=== PATIENT | male | born 1960 | race Caucasian/White ===

== ENCOUNTER → 2020-02-28 | Outpatient (CLI) | payer OTHER ==
--- NOTE | 2020-02-28 11:07 | 2DMMODE ---
[facility] [place] [address] 2 D/M-MODE ECHOCARDIOGRAM Name: DARIUSLUCIA Room #: REG [facility]#: [id number] Admission: 02/28/20 Attend Phys: Vickie Smalls MD Discharge: Date of : 56 Report #: [id number] THIS REPORT FOR: cc: Vickie Smalls MD, Sara A. MD Lammoglia, Francisco J. MD ~ APPROVED REPORT Study performed: 02/28/2020 10:16:08 EXAM: Comprehensive 2D, Doppler, and color-flow Echocardiogram Patient Location: Out-Patient Status: routine BSA: 2.05 HR: 65 bpm BP: 126/76 mmHg Rhythm: NSR Other Information Study Quality: Good Indications Status post COVID-19. 2D Dimensions RVDd: 35.11 mm IVSd: 9.99 (7-11mm) LVOT Diam: 21.41 (18-24mm) LVDd: 49.97 mm PWd: 10.76 (7-11mm) Ascending Ao: 35.33 (22-36mm) LVDs: 29.38 (25-40mm) Aortic Root: 36.13 mm Volumes Left Atrial Volume (Systole) Single Plane 4CH: 44.34 mL Single Plane 2CH: 54.01 mL LA ESV Index: 26.00 mL/m2 Aortic Valve AoV Peak Tirso.: 1.18 m/s AO Peak Gr.: 5.53 mmHg LVOT Max P.11 mmHg LVOT Max V: 1.01 m/s FRAN Vmax: 3.10 cm2 [facility] [address] [place] [address] 2 D/M-MODE ECHOCARDIOGRAM Name: LUCIA MCCOY Room #: REG [facility]#: [id number] Admission: 02/28/20 Attend Phys: Vickie Smalls MD Discharge: Date of : 56 Report #: [id number] Mitral Valve E/A Ratio: 0.9 MV Decel. Time: 217.82 ms MV E Max Tirso.: 0.76 m/s MV A Tirso.: 0.84 m/s MV PHT: 63.17 ms IVRT: 93.43 ms Pulmonary Valve PV Peak Tirso.: 1.02 m/s PV Peak Gr.: 4.13 mmHg Pulmonary Vein P Vein S: 0.49 m/s P Vein A: 0.29 m/s P Vein D: 0.39 m/s P Vein A Dur.: 96.9 msec P Vein S/D Ratio: 1.26 Tricuspid Valve TR Peak Tirso.: 2.00 m/s RAP Estimate: 5.00 mmHg TR Peak Gr.: 16.00 mmHg PA Pressure: 21.00 mmHg Left Ventricle The left ventricle is normal size. There is normal LV segmental wall motion. There is normal left ventricular wall thickness. Left ventricular systolic function is normal. LVEF is 55-60%. Mild diastolic dysfunction is present (impaired relaxation pattern). Right Ventricle The right ventricle is normal size. The right ventricular systolic function is normal. Atria The left atrium size is normal. The right atrium size is normal. Aortic Valve The aortic valve is normal in structure. No aortic regurgitation is present. There is no aortic valvular stenosis. Mitral Valve Mild to moderate prolapse of the posterior mitral valve leaflet. Mild to moderate mitral regurgitation. No evidence of mitral valve stenosis. Tricuspid Valve [facility] [place] [address] 2 D/M-MODE ECHOCARDIOGRAM Name: MEGANSIDNEYLUCIA Room #: REG [facility]#: [id number] Admission: 02/28/20 Attend Phys: Vickie Smalls MD Discharge: Date of : 56 Report #: [id number] The tricuspid valve is normal in structure. Trace tricuspid regurgitation. Estimated PAP is 20-25mmHg. Pulmonic Valve The pulmonary valve is normal in structure. Trace pulmonic regurgitation. Great Vessels The aortic root is normal in size. The ascending aorta is normal in size. IVC is normal in size and collapses >50% with inspiration. Pericardium There is no pericardial effusion. <Conclusion> The left ventricle is normal size. LVEF is 55-60%. The left atrium size is normal. The aortic valve is normal in structure. Mild to moderate prolapse of the posterior mitral valve leaflet. Mild to moderate mitral regurgitation. The tricuspid valve is normal in structure. Trace tricuspid regurgitation. Estimated PAP is 20-25mmHg. There is no pericardial effusion. <ELECTRONICALLY SIGNED> By: Mark Rosales MD 02/28/20 [id number] Mark Rosales MD /INF
== END ==
LOC: CV 10:13
PROVIDERS: ATTEND Family Medicine
DX: U07.1 COVID-19 (principal); I34.0 Nonrheumatic mitral (valve) insufficiency